=== PATIENT | female | born 1960 | race Caucasian/White ===

== ENCOUNTER 2021-09-08 15:58 | Emergency (ER) | payer OTHER ==
[~2021-09-08] VITALS: Ht 162.6 cm; Wt 51.3 kg
[2021-09-08 16:35] VITALS: BP 134/92
--- NOTE | 2021-09-08 16:45 | NUR ---
THE PATIENT IS BIBS FOR R GREATER TOE PAIN/BLEEDING S/P KICKING A THRASH CAN AT 1400. RATES PAIN 4/10. NO APPARENT DEFORMITY NOTED. WILL CONTINUE TO MONITOR THE PATIENT.
[2021-09-08] MEDS ORDERED: IBUPROFEN 600 MG TABLET ONE (16:48)
[2021-09-08] MEDS ORDERED: IBUPROFEN 600 MG TABLET PO ONE (17:00)
[2021-09-08] MEDS ORDERED: IBUP-1955 PO (17:39)
--- NOTE | 2021-09-08 18:01 | NUR ---
Patient discharged to home in stable condition. Written and verbal after care instructions given. Patient verbalizes understanding of instruction.
== END 2021-09-08 18:01 | disposition home or self-care (01) ==
LOC: ER 16:10
DX: S97.111A Crushing injury of right great toe, initial encounter (principal); Z88.0 Allergy status to penicillin; Z88.2 Allergy status to sulfonamides; W22.8XXA Striking against or struck by other objects, initial encounter; Y93.89 Activity, other specified; Y92.090 Kitchen in other non-institutional residence as the place of occurrence of the external cause; Y99.8 Other external cause status
CPT/HCPCS: 73660-TC